=== PATIENT | male | born 1980 | race Caucasian/White ===

== ENCOUNTER 2021-06-05 07:35 | Emergency (ER) | payer OTHER ==
[~2021-06-05] VITALS: Ht 175.3 cm; Wt 84.9 kg
[2021-06-05 12:21] LABS: BASO % 0.2 % (0.0-1.0); EOS # 0.1 10^3/uL (0.0-0.5); EOS % 0.3 % (0.0-3.0); HEMATOCRIT 46.1 % (42.0-52.0); HEMOGLOBIN 15.9 g/dl (13.5-17.5); LYMPH # 1.9 10^3/uL (1.5-5.0); LYMPH % 11.6 % (24.0-44.0); MEAN CORPUSCULAR HEMOGLOBIN 33.3 pg (27.0-33.0); MEAN CORPUSCULAR HGB CONC 34.5 g/dl (32.0-36.5); MEAN CORPUSCULAR VOLUME 96.4 fl (80.0-96.0); MONO # 1.7 10^3/uL (0.0-0.8); MONO % 10.5 % (2.0-8.0); NEUTROPHILS # 12.5 10^3/uL (1.5-8.5); NEUTROPHILS % 76.9 % (36.0-66.0); PLATELET COUNT, AUTOMATED 215 10^3/uL (150-450); RED BLOOD COUNT 4.78 10^6/uL (4.30-6.10)
[2021-06-05 12:26] LABS: WHITE BLOOD COUNT 16.2 10^3/uL (4.0-10.0)
[2021-06-05 12:38] LABS: ALBUMIN 3.8 GM/DL (3.2-5.2); ALT/SGPT 18 U/L (12-78); BILIRUBIN,DIRECT 0.3 MG/DL (0.0-0.2); BILIRUBIN,TOTAL 1.4 MG/DL (0.2-1.0); BLOOD UREA NITROGEN 9 MG/DL (7-18); CALCIUM LEVEL 9.3 MG/DL (8.5-10.1); CARBON DIOXIDE LEVEL 28 MEQ/L (21-32); CHLORIDE LEVEL 103 MEQ/L (98-107); CREATININE FOR GFR 1.07 MG/DL (0.70-1.30); GLOMERULAR FILTRATION RATE > 60.0 (>60); GLUCOSE, FASTING 97 MG/DL (70-100); LIPASE 48 U/L (73-393); POTASSIUM SERUM 4.3 MEQ/L (3.5-5.1); SODIUM LEVEL 138 MEQ/L (136-145)
[2021-06-05] MEDS ORDERED: KETOROLAC 30 MG/ML 1ML VIAL IV ONE (13:25)
[2021-06-05] MEDS ORDERED: NS 1,000 ML IV ONE (13:25)
[2021-06-05] MEDS ORDERED: ISOVUE-370 76% 100ML VIAL As Ordered ONE (13:28)
--- NOTE | 2021-06-05 14:57 | REP ---
INDICATION: rlq pain COMPARISON: None. TECHNIQUE: CT Scan of the abdomen and pelvis was performed with intravenous administration of 100 cc of Isovue 370, without oral contrast. Sagittal and coronal reconstruction images are performed. FINDINGS: Lung bases: There is mild bibasilar fibro atelectatic change. Liver: There are few tiny subcentimeter cysts in the liver. Gallbladder: Unremarkable. Spleen: There are a few calcified granulomas in the spleen. Adrenals: Normal. Pancreas: Normal. Kidneys: Normal. Small and large bowel: There are multiple sigmoid diverticula present with diffuse thickening of the sigmoid colon, as well as diffuse inflammatory stranding of the pericolonic fat in this region. The findings are consistent with sigmoid diverticulitis.. Free fluid: There is trace free fluid in the pelvis. Abdominal aorta: No aneurysm or dissection. Adenopathy: None. Appendix: Not inflamed. Osseous structures: Unremarkable. Pelvis: No mass. IMPRESSION: Sigmoid diverticulitis with trace free fluid in the pelvis. No abscess or free intraperitoneal air. <Electronically signed by Jonathan Shepherd > 06/05/21 [id number]
[2021-06-05] MEDS ORDERED: metroNIDAZOLE (FLAGYL) 500MG TABLET PO ONE (15:20)
[2021-06-05] MEDS ORDERED: CIPROFLOXACIN 500MG TABLET PO ONE (15:20)
[2021-06-05] MEDS ORDERED: CIPR-249 PO ×2 (15:24→15:44)
[2021-06-05] MEDS ORDERED: ONDA4TAB6 PO ×2 (15:24→15:44)
[2021-06-05] MEDS ORDERED: FLAG500T PO ×2 (15:24→15:44)
[2021-06-05] MEDS ORDERED: KETO10TAB PO ×2 (15:24→15:44)
[2021-06-05 15:49] VITALS: BP 115/70
== END 2021-06-05 15:52 | disposition home or self-care (01) ==
LOC: M ED 07:35
DX: K57.32 Diverticulitis of large intestine without perforation or abscess without bleeding (principal); M54.5 Low back pain; Z87.442 Personal history of urinary calculi; Z79.899 Other long term (current) drug therapy
CPT/HCPCS: 74177; 80048; 80076; 81001; 83690; 85025; 96361; 96374; 99284; J1885; Q9967

== ENCOUNTER 2022-01-14 10:56 | Day surgery (SDC) | payer OTHER ==
[~2022-01-14] VITALS: Ht 175.3 cm; Wt 84.1 kg
[~2022-01-14 10:56] MED LIST: CIPR-249 PO; FLAG500T PO; FLUT15.820; KETO10TAB PO; NS 1,000 ML IV ONE; ONDA4TAB6 PO; QC A10TA PO
[2022-01-14] MEDS ORDERED: propofoL 200 MG/20 ML VIAL As Ordered ONE (12:26)
[2022-01-14 13:01] VITALS: BP 120/75
== END 2022-01-14 13:11 | disposition home or self-care (01) ==
LOC: M OPP 10:56
PROVIDERS: ATTEND Internal Medicine Gastroenterology
DX: K57.30 Diverticulosis of large intestine without perforation or abscess without bleeding (principal); K64.0 First degree hemorrhoids; K57.32 Diverticulitis of large intestine without perforation or abscess without bleeding; F17.210 Nicotine dependence, cigarettes, uncomplicated

== ENCOUNTER → 2022-06-15 | Outpatient (REF) | payer OTHER ==
[~2022-06-15] MED LIST changes: +GNPTAB37 PO; -NS 1,000 ML IV ONE; -QC A10TA PO
== END ==
LOC: M WUC 18:09
PROVIDERS: ATTEND Physician Assistant
DX: N39.0 Urinary tract infection, site not specified (principal)

== ENCOUNTER → 2023-03-28 | Outpatient (CLI) | payer OTHER | LOC: M RAD 07:16 | PROVIDERS: ATTEND Otolaryngology | DX: J32.0 Chronic maxillary sinusitis (principal) ==

== ENCOUNTER → 2023-07-03 | Outpatient (REF) | payer OTHER | LOC: M SFHCDERM 16:59 | PROVIDERS: ATTEND Dermatology | DX: L72.9 Follicular cyst of the skin and subcutaneous tissue, unspecified (principal) | CPT/HCPCS: 11406; 17311; 17312; 87070; 87077; 87186; 87205; 88305; G0463 ==